=== PATIENT | female | born 1990 | race Caucasian/White ===

== ENCOUNTER 2019-03-31 08:56 | Inpatient (IN) ==
--- NOTE | 2019-03-31 06:42 | OB/GYN Procedure Note ---
Delivery - Delivery Date: 03/31/19 Provider: Kayleigh Walker Intrapartum events: none Delivery induction: none Delivery monitor: external FHT Anesthesia: none Quantitated Blood Loss: 300 - Infant (s) A Infant Delivery Date: 03/31/19 Delivery Time: 05:53 Presentation: vertex Position: SUMMER Route of delivery: Gender: Male Viability: Viable Pounds: 7 Ounces: 1 Weight Gram: 3.21 kg at 1 minute: 8 at 5 mins: 9 Shoulder Dystocia: not encountered Specimens collected: cord blood Placenta: spontaneous Cord: 3 umbilical vessels - Repair Episiotomy: none Laceration Description: Perineal - 2nd Degree - Complications Delivery complications: none Delivery comments: Pt presented earlier this evening with contractions and was 3cm dilated but did not change her cervix for 6 hours in triage and was therefore discharged home. She then returned this am and underwent precipitous vaginal delivery. She reports her water broke in the parking lot. She pushed effectively to [facility] for viable male "Oniel Gibson" weighing 7lbs 1oz with apgars 8 at one minute and 9 at five minutes. After a two minute delay the cord was doubly clamped and cut by the father. The placenta delivered spontaneous and intact. 10 units of IM pitocin was given for active management of second stage due to lack of IV access. A second degree perineal laceration was repaired with 2-0 monocryl in usual fashion. EBL 300ml. Mother and baby stable in kangaroo care following . - Disposition Mom disposition: stable in LDR [place] disposition: stable in LDR
[2019-03-31 06:47] LABS: Basophils % 0.3 %; Hematocrit 36.7 % (35.3-44.9); Hemoglobin 12.9 g/dL (11.5-15.4); Immature Granulocytes % 0.7 % (0-4); Lymphocytes # 1.3 K/mcL (0.6-4.6); Lymphocytes % 8.7 %; Mean Corpuscular HGB Conc 35.1 g/dL (31.6-35.5); Mean Corpuscular Volume 88.2 fL (83.0-100.0); Mean Platelet Volume 11.9 fL (9.4-12.4); Monocytes # 0.5 K/mcL (0.0-1.3); Monocytes % 3.3 %; Neutrophils # 12.9 K/mcL (1.6-8.9); Platelet Count 176 K/mcL (140-400); Red Blood Count 4.16 M/mcL (3.82-4.97); Red Cell Distribution Width 13.3 % (11.5-14.5)
--- NOTE | 2019-03-31 06:57 | OB/GYN History & Physical ---
Date of Encounter: 03/31/19 Time of Encounter: 06:52 Assessment and Plan (1) Active labor at term Current visit: Yes Status: Acute Pt presented completely dilated with urge to push. She progressed rapidly to . (2) Gestational diabetes Current visit: Yes Status: Acute Pt will need 2 hour GTT at PPV. Qualifiers: Gestational diabetes mellitus control: diet-controlled Trimester: third trimester Qualified Code(s): O24.410 - Gestational diabetes mellitus in , diet controlled (3) 37 weeks gestation of Current visit: No Status: Acute History of Present Illness Chief complaint: labor HPI: Ms. Schaffer is a 28 year old female presenting at 37w3d in active labor and complete dilation. She had been in triage earlier in the evening and was adam regularly but did not make any cervical change for 6 hours and was therefore discharged home with return precautions. Upon arrival to the hospital she reports her water broke in the parking lot and she was feeling an urge to push. This has been complicated by A1GDM which was noted to be well controlled. She received adequate care with Anjel Aguilar and Jalen. Past Med Surg Social Fam HX - Past Medical History Medical history: no medical history Psychiatric history: anxiety - Past Surgical History Surgical History: no surgical history Additional surgical history: wisdom teeth, nose - Social History Smoking Status: Never smoker Alcohol use: none Drug use: none - Family History Father Adopted: No Family Member Ethnicity: Non- Living Status: Still Living Hx Family Cardiac Disorders: Yes Hx Family Respiratory Disorders: No Hx Family Cancer: No Hx Family GI Disorders: No Hx Family Genitourinary Disorders: No Hx Family Endocrine Disorder: No Hx Family Musculoskeletal Disorders: No Hx Family Neuromuscular Disorders: No Hx Family Neurologic Disorders: No Hx Family HEENT Disorders: No Hx Family Autoimmune Disorders: No Hx Family Reproductive Disorders: No Hx Family Psychosocial Disorders: No Hx Family Medical Disorders: No Obstetrical History - Pregnancies : 3 Para: 1 Term: 1 : 0 Ab's: 1 Livin Medications and Allergies Escitalopram [Lexapro] 03/30/19 [History] 19 Tablet 03/30/19 [History] Allergy/AdvReac Type Severity Reaction Status Date / Time No Known Allergies Allergy Verified 03/30/19 20:17 Review of System OB All systems PM: reviewed and no additional remarkable complaints except as stated Exam - Constitutional Constitutional: well developed, well nourished, severe distress - HEENT HEENT: Mucus Membranes Moist - Lungs Respiratory exam: CTAB - Cardiovascular Cardiovascular exam: RRR, +S1, +S2 - Abdomen Abdomen: Present: gravid - Extremities Extremities exam: normal inspection - Vulva Vulva: bilateral: normal - Cervix Dilation: 10 Effacement: 100 Station: -2 - Anus/Rectum Anus/Rectum: Present: normal perianal skin Results Result Diagrams: 03/31/19 06:20 Abnormal lab results WBC 14.8 K/mcL (4.3-11.1) H 03/31/19 06:20 12.9 K/mcL (1.6-8.9) H 03/31/19 06:20 All other labs normal. - VTE Reasons for not Prescribing Prophylaxis: Treatment not Indicated - Low risk for VTE
[2019-03-31] MEDS: Ibuprofen 600 MG TABLET PO PRN ×2 (07:44→16:44)
[~2019-03-31 08:56] MED LIST: *HR* HYDROcodone/Acet 5/325 mg TABLET PO PRN; Acetaminophen 325 MG TABLET PO PRN; Oxytocin 20 units/ LR 1000 mL 20 UNIT/1,000 ML BAG IVC ONE; Oxytocin 20 units/ LR 1000 mL 20 UNIT/1,000 ML BAG IVC SCH
[2019-03-31] MEDS: Prenatal Vit/FA 1 EACH TABLET PO SCH (10:58)
[2019-04-01] MEDS: Ibuprofen 600 MG TABLET PO PRN (06:53)
[2019-04-01 07:54] VITALS: BP 117/68
[2019-04-01] MEDS: Prenatal Vit/FA 1 EACH TABLET PO SCH (08:33)
--- NOTE | 2019-04-01 10:05 | Discharge Summary ---
Date of Encounter: 04/01/19 Time of Encounter: 10:03 - Discharge Diagnosis (1) Vaginal delivery Priority: Primary Status: Acute Comments: Stable, meeting all PP milestones, pain well managed, desires discharge - Discharge Medications Prescriptions: New Acetaminophen [Tylenol] 650 mg PO Q6HR PRN tablet PRN Reason: Mild Pain Escitalopram [Lexapro] 10 mg PO DAILY tablet Ibuprofen [Motrin] 600 mg PO Q6HR PRN #60 tablet PRN Reason: Cramping Docusate [Colace] 100 mg PO BID #30 capsule Continued 19 Tablet No Action Escitalopram [Lexapro] Home Medications: Escitalopram [Lexapro] 03/30/19 [History] 19 Tablet 03/30/19 [History] Acetaminophen [Tylenol] 650 mg PO Q6HR PRN tablet 04/01/19 [Rx] Docusate [Colace] 100 mg PO BID #30 capsule 04/01/19 [Rx] Escitalopram [Lexapro] 10 mg PO DAILY tablet 04/01/19 [Rx] Ibuprofen [Motrin] 600 mg PO Q6HR PRN #60 tablet 04/01/19 [Rx] Allergies/Adverse Reactions: Allergy/AdvReac Type Severity Reaction Status Date / Time No Known Allergies Allergy Verified 03/30/19 20:17 Data Procedures and tests throughout hospitalization: Laboratory Tests 03/31/19 06:20 WBC 14.8 H RBC 4.16 Hgb 12.9 Hct 36.7 MCV 88.2 MCH 31.0 MCHC 35.1 RDW 13.3 Plt Count 176 MPV 11.9 Immature Gran % 0.7 Seg Neutrophils % 87.0 Lymphocytes % 8.7 Monocytes % 3.3 Eosinophils % 0.0 Basophils % 0.3 Neutrophils # 12.9 H Lymphocytes # 1.3 Monocytes # 0.5 Eosinophils # 0.0 Basophils # 0.0 Date of admission: 03/31/19 12:22 Consults: 03/31/19 06:42 Consult to Supervisor Weaving [CONS] Routine Comment: Vaginal delivery, consult needed Discharging clinician: Mira Gruber Anticipated date of discharge: 04/01/19 - Patient Status Disposition: Home, Self-Care Condition: Good Functional capacity at discharge: independent ambulation Overall status at discharge: patient is back to baseline - Discharge Instructions - Diet and Activity Activity: resume usual activities as tolerated Diet: regular diet Hospital Course Reason for admission: active labor Delivery: Episiotomy: none Laceration: 2nd degree Other procedures: none complications: none Discharge diagnosis: IUP at term delivered [place] baby: male Hospital course: Delivery - Delivery Date: 03/31/19 Provider: Kayleigh Walker Intrapartum events: none Delivery induction: none Delivery monitor: external FHT Anesthesia: none Quantitated Blood Loss: 300 - (s) Infant A Infant Delivery Date: 03/31/19 Infant Delivery Time: 05:53 Presentation: vertex Position: SUMMER Route of delivery: Gender: Male Viability: Viable Pounds: 7 Ounces: 1 Weight Gram: 3.21 kg at 1 minute: 8 at 5 mins: 9 Shoulder Dystocia: not encountered Specimens collected: cord blood Placenta: spontaneous Cord: 3 umbilical vessels - Repair Episiotomy: none Laceration Description: Perineal - 2nd Degree - Complications Delivery complications: none Delivery comments: Pt presented earlier this evening with contractions and was 3cm dilated but did not change her cervix for 6 hours in triage and was therefore discharged home. She then returned this am and underwent precipitous vaginal delivery. She reports her water broke in the parking lot. She pushed effectively to [facility] for viable male "Oniel Gibson" weighing 7lbs 1oz with apgars 8 at one minute and 9 at five minutes. After a two minute delay the cord was doubly clamped and cut by the father. The placenta delivered spontaneous and intact. 10 units of IM pitocin was given for active management of second stage due to lack of IV access. A second degree perineal laceration was repaired with 2-0 monocryl in usual fashion. EBL 300ml. Mother and baby stable in kangaroo care following . - Disposition Mom disposition: stable in PP and appropriate for discharge Time Attestation: Total time spent providing and/or coordinating discharge services: Time Spent: Less than 30 minutes Exam - Constitutional Vitals: Temp Pulse Resp BP Pulse Ox 98.3 F 80 14 117/68 97 04/01/19 07:52 04/01/19 07:52 04/01/19 07:52 04/01/19 07:52 04/01/19 07:52 General appearance IM: A&O X 3 - Respiratory Respiratory exam: Present: CTAB - Cardiovascular Cardiovascular exam IM: Present: RRR - GI/Abdominal GI/Abdominal exam IM: soft - Uterine Tone: Firm Uterus Position: At Umbilicus - Extremities Exam Extremities exam IM: Present: normal capillary refill, normal inspection - Neurological Exam Neurological exam: oriented X3 - Psychiatric Additional comments: reports good mood
== END 2019-04-01 13:00 | disposition home or self-care (01) | DRG 807 ==
LOC: 1NENULAB → 1NENUOBS 08:56
PROVIDERS: ADMIT Registered Nurse; ATTEND Registered Nurse